=== PATIENT | male | born 1965 ===

== ENCOUNTER 2018-09-02 12:15 | Emergency (ER) | payer SELFPAY ==
[~2018-09-02] VITALS: Ht 177.8 cm; Wt 81.8 kg
[~2018-09-02 12:15] MED LIST: CEPH-376 PO
[2018-09-02 12:26] VITALS: BP 120/87
[2018-09-02] MEDS ORDERED: ZIPRASIDONE 20 MG INJ IM PRN (13:30)
== END 2018-09-02 19:24 ==
LOC: ED 18:27 → MERGE 18:27 → EDBD 18:27 → ED 19:24
DX: F10.229 Alcohol dependence with intoxication, unspecified (principal); Y04.8XXA Assault by other bodily force, initial encounter; Y93.89 Activity, other specified; Y92.89 Other specified places as the place of occurrence of the external cause; Y99.8 Other external cause status
CPT/HCPCS: 70450; 99284

== ENCOUNTER 2018-12-03 07:19 | Emergency (ER) | payer MEDICAID ==
[~2018-12-03] VITALS: Ht 175.3 cm; Wt 84.0 kg
--- NOTE | 2018-12-03 07:29 | NUR ---
PT. ARRIVES BY [facility] WITH C/O ETOH AND BEING COLD. PT. WAS FOUND BY [employer] LYING DOWN IN WET CLOTHES. PT. STATES, "I DRANK A GALLON OF WHISKEY." PT.'S SPEACH IS CLEAR, HE REMAINS A & O X 4. LUNGS ARE CTA. MM ARE PINK AND MOIST WITH PULSES +2 THROUGHOUT. PT. IS RESTING WITH WARMING MEASURES IN PLACE. WET CLOTHING WAS REMOVED. PT.'S VITALS ARE STABLE. SIDERAILS REMAIN UP X 2 WITH THE CALL LIGHT IN PLACE. HOB IS ELEVATED GREATER THAN 30 DEGREES. PT. REMAIN PINK, WARM AND DRY WITH PULSES +2 THROUGHOUT. PT. HAS NO CONCERNS AT THIS TIME.
--- NOTE | 2018-12-03 08:30 | NUR ---
PT. IS RESTING WITHOUT CONCERNS.
--- NOTE | 2018-12-03 09:55 | NUR ---
PT. FINISHED HIS BREAKFAST AND VOIDED 400 CC YELLOW URINE. VSS. PT. HAS NO CONCERNS.
--- NOTE | 2018-12-03 10:46 | NUR ---
PT. WAS GIVEN DISCHARGE INSTRUCTIONS WITH UNDERSTANDING VERBALIZED.
[2018-12-03 10:47] VITALS: BP 106/52
== END 2018-12-03 11:24 | disposition home or self-care (01) ==
LOC: ED 11:01
DX: F10.220 Alcohol dependence with intoxication, uncomplicated (principal); Y90.9 Presence of alcohol in blood, level not specified
CPT/HCPCS: 99281; 99283

== ENCOUNTER 2019-09-21 00:53 | Emergency (ER) | payer MEDICAID ==
[~2019-09-21] VITALS: Ht 170.2 cm; Wt 65.0 kg
[2019-09-21 03:50] VITALS: BP 129/78
--- NOTE | 2019-09-21 03:51 | NUR ---
pt sleeping in bed, vital signs being monitored
== END 2019-09-21 04:35 | disposition home or self-care (01) ==
LOC: ED 04:29
DX: F10.220 Alcohol dependence with intoxication, uncomplicated (principal); Y90.9 Presence of alcohol in blood, level not specified
CPT/HCPCS: 99283

== ENCOUNTER 2019-12-14 00:46 | Emergency (ER) | payer MEDICAID ==
[~2019-12-14] VITALS: Ht 175.3 cm; Wt 62.0 kg
--- NOTE | 2019-12-14 01:42 | NUR ---
Lab at bedside for blood draw. Pt in [facility] in no acute distress, vss, side rails up and locked.
[2019-12-14 01:53] LABS: BASOPHILS # (AUTO) 0.07 x10^3/uL (0-0.1); BASOPHILS % (AUTO) 1 % (0-1); EOSINOPHILS # (AUTO) 0.01 x10^3/uL (0-0.4); EOSINOPHILS % (AUTO) 0 % (1-7); LYMPHOCYTES # (AUTO) 1.93 x10^3/uL (1-3.4); LYMPHOCYTES % (AUTO) 34 % (22-44); MD NO; MEAN CORPUSCULAR HEMOGLOBIN 30.2 pg (27.5-34.5); MEAN CORPUSCULAR HGB CONC 33.8 g/dL (33.2-36.2); MEAN CORPUSCULAR VOLUME 89.3 fL (81-97); MEAN PLATELET VOLUME 7.6 fL (7.4-10.4); MONOCYTES # (AUTO) 0.61 x10^3/uL (0.2-0.8); MONOCYTES % (AUTO) 11 % (2-9); NEUTROPHILS # (AUTO) 3.07 x10^3/uL (1.8-6.8); NEUTROPHILS % (AUTO) 54 % (42-75); PLATELET COUNT 279 x10^3/uL (130-400); RED BLOOD COUNT 4.85 x10^6/uL (4.38-5.82); RED CELL DISTRIBUTION WIDTH 14.9 % (9.4-14.8)
[2019-12-14 02:01] LABS: ALANINE AMINOTRANSFERASE 47 U/L (12-78); ALBUMIN 3.6 g/dL (3.4-5.0); ANION GAP 9 mmol/L (5-15); CALCIUM 7.9 mg/dL (8.5-10.1); CHLORIDE 106 mmol/L (98-107); CREATININE 0.82 mg/dL (0.7-1.3)
[2019-12-14 02:05] LABS: ALKALINE PHOSPHATASE 99 U/L (45-117); BILIRUBIN,TOTAL 0.2 mg/dL (0.2-1.0); TOTAL PROTEIN 8.1 g/dL (6.4-8.2)
--- NOTE | 2019-12-14 02:36 | NUR ---
BREAK RN: PT. RESTING ON GURNEY WITH EYES CLOSED. NO DISTRESS NOTED. RESPIRATIONS VISIBLE AND NON-LABORED. ALL SAFETY MEASURES OBSERVED.
--- NOTE | 2019-12-14 02:47 | NUR ---
REPORT BACK TO BRISA RIVERA TO ASSUME PRIMARY CARE.
--- NOTE | 2019-12-14 03:00 | NUR ---
PT SLEEPING, NO ACUTE DISTRESS NOTED, AROUSABLE TO VERBAL COMMAND, VSS.
--- NOTE | 2019-12-14 04:05 | NUR ---
SLEEPING, EQUAL CHEST RISE, NO DISTRESS NOTED. VSS. SIDE RAILS ON GURNEY LOCKED, CALL LIGHT PLACED WITHIN REACH.
[2019-12-14 05:17] VITALS: BP 110/71
--- NOTE | 2019-12-14 05:18 | NUR ---
RESTING ON GURNEY, AWAKE AND TALKING, DENIES ANY PAIN AT THIS TIME. VSS.
--- NOTE | 2019-12-14 05:27 | NUR ---
PT AMBULATED ON STEADY GAIT.
== END 2019-12-14 05:53 | disposition home or self-care (01) ==
LOC: ED 05:47
DX: F10.120 Alcohol abuse with intoxication, uncomplicated (principal); G31.2 Degeneration of nervous system due to alcohol; Z72.9 Problem related to lifestyle, unspecified; F17.200 Nicotine dependence, unspecified, uncomplicated; Y90.0 Blood alcohol level of less than 20 mg/100 ml
CPT/HCPCS: 36415; 80053; 80307; 85025; 99285

== ENCOUNTER 2020-06-15 03:53 | Emergency (ER) | payer MEDICAID ==
[~2020-06-15] VITALS: Ht 177.8 cm; Wt 60.0 kg
--- NOTE | 2020-06-15 03:56 | NUR ---
Patient BIB [facility]; patient found on the 4th floor in an apartment complex in the hallway. Patient was alert to verbal stimuli and oriented to his first name and year of . Patient had a bottle of vodka on his person. He stated to EMS that he "had a few (vodka bottles) earlier in the night." EMS stated patient became agitated by any interventions. Patient is in NAD. Respirations even and unlabored; able to maintain his own airway.
[2020-06-15 07:04] VITALS: BP 96/63
--- NOTE | 2020-06-15 07:04 | NUR ---
RECEIVED REPORT FROM JAYDEN WOOTEN RN. PT SLEEPING ON ALESHA. NADN. CABAN.
--- NOTE | 2020-06-15 07:40 | NUR ---
PT AOX4. AMBULATORY W/ STEADY GAIT. WANTS TO LEAVE. PROVIDED W/ DC PAPERWORK AND WALKED TO DC DESK PT CAN NOW STATE NAME AND .
== END 2020-06-15 07:42 | disposition home or self-care (01) ==
LOC: MERGE 07:32 → ED 07:32
DX: F10.120 Alcohol abuse with intoxication, uncomplicated (principal); R41.82 Altered mental status, unspecified; Y90.0 Blood alcohol level of less than 20 mg/100 ml
CPT/HCPCS: 99283